=== PATIENT | female | born 1940 | race Caucasian/White ===

== ENCOUNTER 2017-12-07 11:54 | Day surgery (SDC) | payer MEDICARE ==
[~2017-12-07] VITALS: Ht 165.1 cm; Wt 92.4 kg
[~2017-12-07 11:54] MED LIST: AMLO2.5T PO; ASPI81 PO; CALC600T10 PO; CLON.2 PO; CO Q200C PO; COUM4TAB7 PO; CYAN1LOZ PO; FENO1TAB76 PO; FOLI1TAB PO; IMDU120T PO; LIVA4TAB PO; LUTE15CA PO; METH50P INJ; METO50TA PO; Meclizine Hcl PO; NITR0.4S PO; OMEP20CA5 PO; STOO100T PO; ULTR50TA PO; WARF5TAB PO
[2017-12-07] MEDS ORDERED: IOHEXOL 350 MG/ML 100 ML BTL (for Cath Lab) OTHER ONE (11:55)
[2017-12-07 12:37] VITALS: BP 151/59; PULSE 87; RESP 18; TEMP 98.9; O2SAT 100
[2017-12-07] MEDS ORDERED: NS 1000P @30 MLS/HR (KVO) IV SCH (12:45)
[2017-12-07 12:46] LABS: AUTOMATED NEUTROPHIL # 2.9 TH/MM3 (1.8-7.7); BASOPHIL # 0.1 TH/MM3 (0-0.2); BASOPHIL % 1.3 % (0.0-2.0); EOSINOPHIL # 0.1 TH/MM3 (0-0.4); EOSINOPHIL % 2.9 % (0.0-4.0); HEMATOCRIT 28.6 % (35.0-46.0); HEMOGLOBIN 9.2 GM/DL (11.6-15.3); LYMPH % 18.9 % (9.0-44.0); LYMPHOCYTE # 0.8 TH/MM3 (1.0-4.8); MEAN CELL VOLUME 86.2 FL (80.0-100.0); MEAN CORPUSCULAR HEMOGLOBIN 27.8 PG (27.0-34.0); MEAN CORPUSCULAR HGB CONC 32.3 % (32.0-36.0); MEAN PLATELET VOLUME 8.3 FL (7.0-11.0); MONO % 7.5 % (0.0-8.0); MONOCYTE # 0.3 TH/MM3 (0-0.9); NEUT % 69.4 % (16.0-70.0); PLATELET COUNT 319 TH/MM3 (150-450); RED BLOOD COUNT 3.31 MIL/MM3 (4.00-5.30); RED CELL DISTRIBUTION WIDTH 18.9 % (11.6-17.2); WHITE BLOOD COUNT 4.2 TH/MM3 (4.0-11.0)
[2017-12-07] MEDS ORDERED: ECASA81 PO (12:49)
[2017-12-07] MEDS ORDERED: AMLO5TAB2 PO (12:49)
[2017-12-07] MEDS ORDERED: LISI40TA PO (12:49)
[2017-12-07] MEDS ORDERED: VITA250T3 PO (12:49)
[2017-12-07] MEDS ORDERED: FENO1TAB76 PO (12:49)
[2017-12-07] MEDS ORDERED: ZOLE5P IV (12:49)
[2017-12-07] MEDS ORDERED: NITR1SUB3 SL (12:49)
[2017-12-07] MEDS ORDERED: COUM5TAB PO (12:49)
[2017-12-07] MEDS ORDERED: TREX5TAB PO (12:49)
[2017-12-07] MEDS ORDERED: FOLI400T PO (12:49)
[2017-12-07] MEDS ORDERED: ISOS120T PO (12:49)
[2017-12-07] MEDS ORDERED: LIVA4TAB PO (12:49)
[2017-12-07] MEDS ORDERED: DOCU50CA5 PO (12:49)
[2017-12-07] MEDS ORDERED: PRIL20TA2 (12:49)
[2017-12-07] MEDS ORDERED: METO25TA3 PO (12:49)
[2017-12-07] MEDS ORDERED: TIZA2TAB PO (12:49)
[2017-12-07 12:56] LABS: PROTHROMBIN TIME - PATIENT 19.8 SEC (9.8-11.6)
[2017-12-07 13:00] LABS: BICARBONATE 22.3 MEQ/L (21.0-32.0); CALCIUM 9.4 MG/DL (8.5-10.1); CREATININE 0.83 MG/DL (0.50-1.00)
[2017-12-07] MEDS ORDERED: HEPARIN-NS/PF FLUSH BAG 2,000 ML IV FLUSH ONE (13:27)
[2017-12-07] MEDS ORDERED: MIDAZOLAM HCL 2 MG/2 ML VIAL ONE (13:28)
[2017-12-07] MEDS ORDERED: HEPARIN SODIUM - IV 10,000 UNITS/10 ML VIAL ONE (13:38)
[2017-12-07] MEDS ORDERED: VERAPAMIL HCL 5 MG/2 ML VIAL ONE (13:38)
--- NOTE | 2017-12-07 14:28 | CATHPROC ---
[place] [employer] HIS Report Study Information Study Number Admission Scheduled Start Study Start [id number] Dec 07 2017 11:54AM 12/07/2017 Dec 07 2017 1:21PM [facility] Service Cardiac Catheterization Admit Source Facility Department Other [facility] - [employer] Physician and Clinical Staff Initial Marlon Menjivar Ob/Gyn Robert Bustillo,JESSE Recorder Enedelia Armas BSN Scrub Patsy, Anselmo,RT(R) Procedures Performed Procedure Location (Site) Vessel Name Coronary Angiograms LCA Left Coronary Coronary Angiograms RCA Right Coronary L Heart Cath LV Gram-hand inj. LV LV Ventricle Wire insertion Radial (right) Radial Art. Equipment Time Chocolate Temperer Description Size Mfg Part Number Used/Scraped TRANSDUCER, TRUWAVE [id number] 13:40 BRUNSON BEASLEY * Used W/STOCKCOCK *[id number] [id number] *[id number] [id number] *[id number] MPA-2 INFINITI 125CM 534-544T CATHETER *[id number] 13:40 MALLINCKRODT SYRINGE, ANGIOMAT 150ML 150ML *[id number] Used 2S MEDICAL CONCEPT DRAPE, RADIAL FEMORAL FULL 13:40 * [id number] *[id number] Used DEVELOPMENT BODY [id number] 13:40 [employer] PACK, CCL CUSTOM * Used *[id number] 13:40 [employer] SUPPORT, ARTERIAL ADULT 26241 *[id number] Used [id number] 13:40 [employer] PACER PEN, SKIN DUAL W/ RULER * Used *[id number] 14:01 MEDTRON[employer] JR 4.0 DXTERITY CATHETER FR 5 Used *[id number] BAND, RADIAL COMPRESSION TR [id number] 14:14 [employer] 29CM Used LARGE 29 *[id number] SHEATH, FR6 RADIAL PRELUDE 13:40 [employer] FR 6 [id number] Used EASE 11CM [id number] 13:40 [employer] WIRE, EXCHANGE 260CM 3MMJ 260CM Used *[id number] 13:40 NAMIC MANIFOLD, 4 PORT * Used *[id number] 13:40 [employer]ED OMNIPAQUE, 350 MG, 150ML 150ML [id number] Used [id number] 13:40 AG [employer]ICAL BLANKET,WARM AIR CCL * Used *[id number] CATHETER, FR5 OPTITORQUE [id number] 13:47 [employer] FR 5 Used RADIAL TIG 4.0 *[id number] WIRE, ANGLED GLIDE .035 [id number] 13:57 [employer] MEDICAL/VIBHA 260CM Used 260CM *[id number] History: Current Medications Medication Dosage/Unit Route Frequency Last Date/Time Taken Statins (any) Beta Deuce History: Allergies Allergy Reaction codeine Rash oxycodone Respiratory Failure pentazocine Respiratory Failure aspirin Respiratory Failure pravastatin MUSCLE PAIN atorvastatin MUSCLE PAIN clopidogrel rosuvastatin MUSCLE PAIN History: Risk Factors Family History of Hypertension Dyslipidemia Previous [place] Previous Heart Failure Premature CAD Yes Yes Yes No No Prior Valve Prior PCI Prior PCIDate Prior CABG Prior CABGDate Surgery No Yes 10/09/2008 Yes 10/02/2004 Cerebrovascular Peripheral Artery Chronic Lung On Dialysis Diabetes Disease Disease Disease No No No No No History: Stress Tests Stress or Imaging Studies Performed No History: Other Current Smoker No Labs Hgb (g/dl) Hct (%) WBC (l/cumm) Platelets (thousands) 11.60-17.00 35.00-51.00 4.00-11.00 150.00-450.00 9.2 28.6 4.2 319 Glucose (mg/dl) BUN (mg/dl) Creatinine (mg/dl) BUN:Creatinine (1:x) 74.00-106.00 7.00-18.00 0.50-1.30 10.00-20.00 97 20 0.8 25 Na (meq/l) K (meq/l) 136.00-145.00 3.50-5.10 141 4.2 INR (PTT:PT) 0.90-1.10 2 CPK-MB (ng/ML) 0.50-3.60 Not Drawn Medication Medication Total Dose (Bolus/Oral) Medication Total Dosage/Unit 1% XYLOCAINE 5 mL RADIAL COCKTAIL 5 mL (Bolus) VERSED 2 mg Medications (Bolus/Oral) Medication Time Given Dosage/Unit Administered By Reason VERSED 12/07/2017 1:50:39 PM 2 mg Robert Bustillo Patient arrived on 2 mg VERSED given by Robert Bustillo RN in Left Wrist via Peripheral IV. Ordered by Marlon Zhang. 1% XYLOCAINE 12/07/2017 1:51:00 PM 5 mL Marlon Zhang Patient arrived on 5 mL 1% XYLOCAINE given by Marlon Zhang in Right Radial via Subcutaneous. Ordered by Marlon Zhang. Ntg 200mcg Verapamil 2.5mg Heparin RADIAL COCKTAIL 12/07/2017 1:53:18 PM 5 mL (Bolus) Marlon Zhang 2500U Patient arrived on 5 mL (Bolus) RADIAL COCKTAIL given by Marlon Zhang in Right Radial via Radial. Eulalia santos [Solution Name]. Ordered by Marlon Zhang. Reason: Ntg 200mcg Verapamil 2.5mg Heparin 2500U. Medication (Drip) Medication Time Given Dosage/Unit Concentration/Unit Diluent (ml) Solution IV Solutions 12/07/2017 1:31:31 PM 50 mL (IV) NaCl .9 Patient arrived on IV Solutions in Left Wrist via Peripheral IV. Pump/Drip Flow using NaCl .9 at kvo. Ordered by Marlon Zhang. Initial Case Assessment Cardiovascular HR Rhythm NIBP Chest Pain 61 sr 127/70 0 Edema Present Skin color Skin None Normal Warm Dry Circulatory - Right Pulses Dorsalis Pedis Femoral Radial 2 2 2 Scale (0,1,2,3,4,d) Scale (0,1,2,3,4,d) Circulatory - Lower Extremities Color Lower Right Color Lower Left Normal Normal Neurological State Oriented to time-place- Alert Moves all extremities person Respiration - General Respiration Rate SpO2 (%) (B/min) 16 98 Final Case Assessment Cardiovascular HR Rhythm NIBP Chest Pain 61 sr 127/65 0 Edema Present Skin color Skin None Normal Warm Dry Circulatory - Right Pulses Dorsalis Pedis Femoral Radial 2 2 2 Scale (0,1,2,3,4,d) Scale (0,1,2,3,4,d) Circulatory - Lower Extremities Color Lower Right Color Lower Left Normal Normal Neurological State Oriented to time-place- Alert Moves all extremities person Respiration - General Respiration Rate SpO2 (%) (B/min) 15 96 Chronological Log Time Study Chronological Log 13:21:21 Patient arrived via Bed. 13:21:22 Patient Name, D.O.B, / Armband Verified By R.N. 13:21:23 Consent signed by the physician and the patient and verified by the [employer] [employer] [facility] staff. 13:21:26 Patient has been NPO for More than 6Hrs. Vitals capture started with the following parameters, Patient=Adult, Interval=5 min, Initial Pr xqipyj=290 mmHg, 13:30:07 Deflation Rate=5 mmHg, Cuff placed on Right Ankle 13:30:09 Skin Breakdown- none per patient 13:30:47 HR=60 bpm, KLMC=024/70 mmhg, SpO2=99.0 %, Resp=16 B/min, Pain=0, Radha=10, Velasquez=2 13:31:19 A # 22 IV was noted in the Wrist (left). Grade = 0 Patient arrived on IV Solutions in Left Wrist via Peripheral IV. Pump/Drip Flow using NaCl .9 a t kvo. Ordered by Vicente 13:31:31 Marlon. 13:31:59 History and physical on the chart or being dictated. Assessment: Initial Case, HR=61 BPM, Rhythm=sr, CJGH=663/70 mmhg, Chest Pain=0, Edema=None, Col or=Normal, Skin = Warm, Dry Right Pulses: Jayce Ped=2, Femoral=2, Radial=2 13:32:02 Lower Right Extremities: Color=Normal Lower Left Extremities: Color=Normal Neurological: State=Alert, Ox3, LYNN Respiration: Resp=16 B/min, SpO2=98 % 13:32:40 Right Radial and groin(s) prepped with 2% chlorhexidine, and draped after a 3 min. waiting time. 13:33:13 Allens test performed on the right radial and ulnar artery. 13:35:50 HR=70 bpm, JRXG=801/66 mmhg, FeC2=223.0 %, Resp=14 B/min, Pain=0, Radha=10, Velasquez=2 13:35:51 Presedation assessment performed by [employer] RN. 13:36:15 Reference ECG taken 13:40:40 paged 13:40:51 HR=59 bpm, PNAV=833/66 mmhg, SpO2=98.0 %, Resp=16 B/min, Pain=0, Radha=10, Velasquez=2 13:41:12 MD responded 13:45:32 Pressure channel 1 zeroed. 13:45:50 HR=68 bpm, NTNZ=175/70 mmhg, SpO2=99.0 %, Resp=12 B/min, Pain=0, Radha=10, Velasquez=2 13:48:59 MD arrived. 13:50:39 Patient arrived on 2 mg VERSED given by Robert Bustillo, RN in Left Wrist via Peripheral IV. Ordered by Marlon Zhang. 13:50:49 HR=82 bpm, TKNH=800/84 mmhg, SpO2=99.0 %, Resp=19 B/min, Pain=0, Radha=10, Velasquez=2 Time Out. Correct patient, correct procedure, correct physician, power injector loaded, or not loaded with contrast with 13:50:52 surgical team present. Time Out Concurred by MD and individual staff in procedure. 13:50:56 Case Start Patient arrived on 5 mL 1% XYLOCAINE given by Marlon Zhang in Right Radial via Subcutaneous. Or dered by Vicente, 13:51:00 Marlon. 13:52:52 Access site was Radial Artery. A SHEATH, FR6 RADIAL PRELUDE EASE 11CM FR 6 was advanced into the Radial (right) using the Perc utaneous 13:53:02 technique. Patient arrived on 5 mL (Bolus) RADIAL COCKTAIL given by Marlon Zhang in Right Radial via Radia l. Using [Solution 13:53:18 Name]. Ordered by Marlon Zhang. Reason: Ntg 200mcg Verapamil 2.5mg Heparin 2500U. A CATHETER, FR5 OPTITORQUE RADIAL TIG 4.0 FR 5 was advanced over a wire. OMNIPAQUE, 350 MG, 150 ML 150ML 13:54:07 was used for injections. 13:54:23 A WIRE, ANGLED GLIDE .035 260CM 260CM was inserted via Radial (right). 13:55:33 Wire removed 13:55:58 HR=63 bpm, XXGZ=341/53 mmhg, SpO2=95.0 %, Resp=17 B/min, Pain=0, Radha=9, Velasquez=2 13:56:41 The LCA was injected and visualized at various angles. OMNIPAQUE, 350 MG, 150ML 150ML used . 13:58:29 The RCA was injected and visualized at various angles. OMNIPAQUE, 350 MG, 150ML 150ML used . Recorded Pressure: Ao, HR=64, Condition=Condition 1 13:58:43 (Aorta) Ao 110/50/76 14:00:49 HR=66 bpm, RXKD=949/62 mmhg, SpO2=96.0 %, Resp=18 B/min, Pain=0, Radha=9, Velasquez=2 After removing the current catheter a JR 4.0 DXTERITY CATHETER FR 5 was advanced over a WIRE, E XCHANGE 260CM 14:01:12 3MMJ 260CM. After removing the current catheter a LCB INFINITI CATHETER FR 5 was advanced over a WIRE, EXCH BRAYDON 260CM 14:03:56 3MMJ 260CM. 14:05:52 HR=62 bpm, QLHY=163/62 mmhg, SpO2=95.0 %, Resp=16 B/min, Pain=0, Radha=9, Velasquez=2 After removing the current catheter a AL 1 INFINITI CATHETER FR 5 was advanced over a WIRE, EXC HANGE 260CM 14:06:52 3MMJ 260CM. After removing the current catheter a MPA-2 INFINITI 125CM CATHETER FR 5 was advanced over a WI RE, EXCHANGE 14:10:12 260CM 3MMJ 260CM. Recorded Pressure: LV, HR=91, Condition=Condition 1 14:10:54 (Left Ventricle) LV 123/-4/15 14:11:13 The LV was manually injected with 10 cc's and visualized. OMNIPAQUE, 350 MG, 150ML 150ML us ed. Recorded Pressure: LV, Ao, HR=64, Condition=Condition 1 14:11:23 (Left Ventricle) LV 131/13/15, (Aorta) Ao 127/55/84 14:11:26 HR=63 bpm, JHRC=341/65 mmhg, SpO2=95.0 %, Resp=17 B/min, Pain=0, Radha=10, Velasquez=2 14:12:44 Catheter(s) removed without difficulty 14:12:52 Case End Radial Compression Device Used. 15 mLs of air placed in BAND, RADIAL COMPRESSION TR LARGE 29 2 9CM. Affected 14:13:25 hand 97 % O2 saturation. 14:13:53 No case complications noted. 14:13:54 Cine recording checked. 14:14:11 Bedside Report will be given. 14:14:33 A Left Heart Cath was performed. Assessment: Final Case, HR=61 BPM, Rhythm=sr, LZUU=735/65 mmhg, Chest Pain=0, Edema=None, [place] r=Normal, Skin = Warm, Dry Right Pulses: Jayce Ped=2, Femoral=2, Radial=2 14:14:53 Lower Right Extremities: Color=Normal Lower Left Extremities: Color=Normal Neurological: State=Alert, Ox3, LYNN Respiration: Resp=15 B/min, SpO2=96 % 14:15:56 HR=57 bpm, EAIS=204/62 mmhg, SpO2=97.0 %, Resp=17 B/min, Pain=0, Radha=10, Velasquez=2 14:22:34 Patient moved to stretcher End Study - Contrast Media Used In Study Contrast Total Opened (mL) Total Used (mL) Total Wasted (mL) Omnipaque 90 90 0 End Study - Maximum Contrast Load Max Contrast Load (mL) 575.0 End Study - Radiation Exposure Fluoro Time (minutes) 6.2 End Study - Patient Disposition Complications Transferred To No [employer] [employer] Holding
[2017-12-07] MEDS ORDERED: MISC INFORMATION XX ONE (14:30)
--- NOTE | 2017-12-07 14:53 | MA ---
cc: Marlon Zhang MD 12/07/2017 DATE OF : 1940. PROCEDURE: Left heart catheterization, selective coronary and graft angiography, left ventriculography. PROCEDURE NOTES: The patient was brought to the cardiac catheterization laboratory in a fasting state after having signed informed consent. The right radial region was prepped and draped as per policy and anesthetized with 1% lidocaine. Arterial access was obtained via the right radial artery and a 6-Irish sheath placed. Coronary arteriography was performed using a [place] catheter. The vein graft to the obtuse marginal was engaged with an Amplatz left 1.0 catheter. Left ventriculography was done using a multipurpose catheter. There were no apparent, immediate complications. A radial artery compression band was applied to her right wrist at the end of the case to achieve good hemostasis. HEMODYNAMIC DATA: Left ventricle 10/19/2017 with an end-diastolic pressure of 13. Aorta 127/55 with a mean of 84. There was no significant transvalvular aortic gradient on pullback of the pigtail catheter. CORONARY ARTERIOGRAPHY: The left main has a 20% distal stenosis. The left anterior descending is diffusely diseased. There is up to 30% diffuse proximal disease, 30% mid disease diffusely. The distal LAD has minimal luminal irregularities. The LAD gives rise to a medium size diagonal. Some views suggest up to 70-80% lesion in the mid portion of this diagonal. The left circumflex is a medium-sized vessel giving rise to a large obtuse marginal. There is up to 10% proximal stenosis. It gives rise to a large branching obtuse marginal, which demonstrates competitive flow. A small caliber inferior branch of the obtuse marginal has 80-90% proximal stenosis. The right coronary artery is a fairly large, dominant vessel, which is also diffusely diseased. In the proximal vessel, there is a globular 90% lesion. In the mid-portion, there is another severe lesion resulting in up to 95-99% stenosis right after the takeoff of a large right ventricular branch which has diffuse ostial to proximal disease resulting in up to 40% stenosis. The distal right coronary also has severe disease, likely resulting in up to 90% stenosis. There are scant [id number] collaterals. GRAFT ANGIOGRAPHY: The only graft remaining is known to be a vein graft to the obtuse marginal. This graft is a very large caliber graft, which is widely patent. There may be an area of 25% stenosis proximally. LEFT VENTRICULOGRAPHY: Contrast injection of the left ventricle reveals no segmental wall motion abnormalities. Ejection fraction is estimated at 60-65%. CONCLUSIONS: 1. Moderate to severe three-vessel coronary artery disease. 2. Right dominant system. 3. One remaining bypass graft, a widely patent vein graft to the obtuse marginal. DISCUSSION: Percutaneous intervention on the [place] right coronary would be very difficult. Further discussion will be made with other interventional cardiologists. Bypass surgery could be considered. Grafting could be done to the distal right coronary, right ventricular branch, diagonal. MD NORA Salazar/NIALL , 02:24 PM , 02:52 PM COREY
--- NOTE | 2017-12-08 20:56 | EKG ---
Date Performed: 12/07/2017 Time Performed: 12:42:24 PTAGE: 77 years EKG: Sinus bradycardia with sinus arrhythmia. Normal ECG except for rate PREVIOUS TRACING : 03/28/2014 00.53 Since the previous tracing, no significant change not ed DOCTOR: Yoel Britt Interpretating Date/Time 12/08/2017 20:55:28
== END 2017-12-07 17:40 | disposition home or self-care (01) ==
LOC: HDOC 11:54 → HDIC 11:56 → HDOC 17:40
PROVIDERS: ATTEND Internal Medicine Cardiovascular Disease
DX: I25.10 Atherosclerotic heart disease of native coronary artery without angina pectoris (principal); I48.0 Paroxysmal atrial fibrillation; I10 Essential (primary) hypertension; E78.5 Hyperlipidemia, unspecified; Z79.01 Long term (current) use of anticoagulants
CPT/HCPCS: 80048; 85025; 85610; 85730; 93005; 93459; 99152; 99153; C1769; C1893; J1644; J2250; Q9967